=== PATIENT | male | born 1935 | race Caucasian/White ===

== ENCOUNTER 2016-09-13 15:17 | Emergency (ER) | payer MEDICARE, MEDICAID ==
[2016-02-06 09:34] VITALS: Ht 172.7 cm; Wt 81.6 kg
[~2016-09-13] VITALS: Ht 172.7 cm; Wt 81.6 kg
[2016-09-13 15:17] VITALS: BP 107/65; PULSE 77; RESP 18; TEMP 97.2; O2SAT 100
[~2016-09-13 15:17] MED LIST: AMIKACIN IV; ASA81 GT; ASCO500T20 GT; CALC-827 GT; CEFE1FRO IV; CHLO473M5 MM; CLOP75TA2 GT; COLL100 GT; DULR10 RC; FAMO20TA8 GT; FER300L GT; INSU100V11 SQ; INSU100V9 SUBCUT; IPRA3AMP9 INH; LACTIN GT; MAGN400O4 GT; MULT240L PO; NA P118E RC; POTA20TA83 GT; RIVA10TA PO; SEN30 GT; TAMS0.4C96 GT; TRAM50TA92 GT; TYLL650 GT; VITD2000 PO
[2016-09-13 15:30] VITALS: BP 105/65; PULSE 80; RESP 18; TEMP 97.4; O2SAT 100
[2016-09-13] MEDS ORDERED: GASTROGRAFIN 120 ML ONE (15:30)
== END 2016-09-13 15:30 | disposition home or self-care (01) ==
LOC: SED 15:17
DX: Z46.59 Encounter for fitting and adjustment of other gastrointestinal appliance and device (principal); K21.9 Gastro-esophageal reflux disease without esophagitis; I10 Essential (primary) hypertension; E03.9 Hypothyroidism, unspecified; Z86.73 Personal history of transient ischemic attack (TIA), and cerebral infarction without residual deficits
CPT/HCPCS: 43760; 74240; 99284; Q9963

== ENCOUNTER 2018-04-18 15:58 | Inpatient (IN) | payer MEDICAID, MEDICARE ==
[~2018-04-18] VITALS: Ht 177.8 cm; Wt 84.1 kg
[~2018-04-18 15:58] MED LIST changes: -AMIKACIN IV; +APIX2.5T GT; -CEFE1FRO IV; -CLOP75TA2 GT; -COLL100 GT; +DIPH-934 GT; -INSU100V9 SUBCUT; -MAGN400O4 GT; +MOM GT; -RIVA10TA PO; -VITD2000 PO
[2018-04-18 16:00] VITALS: BP_SYST 121
[2018-04-18] MEDS ORDERED: NACL 0.9% 1,000 ML IV ONE (17:00)
[2018-04-18] MEDS ORDERED: DEXTROSE 50% JECT 50 ML DISP.SYRIN IVP PRN (17:30)
[2018-04-18] MEDS ORDERED: D5LR 1,000 ML IV ONE (17:30)
[2018-04-18 17:38] LABS: BASOPHILS # (AUTO) 0.1 K/uL (0.0-0.2); BASOPHILS % (AUTO) 1.2 % (0.0-2.0); EOSINOPHILS # (AUTO) 0.1 K/uL (0.0-0.4); EOSINOPHILS % (AUTO) 0.6 % (0.0-4.0); HEMATOCRIT 36.9 % (36-54); HEMOGLOBIN 12.4 g/dL (14.0-18.0); LYMPHOCYTES # (AUTO) 1.7 K/uL (1.0-5.5); LYMPHOCYTES % (AUTO) 17.4 % (20.5-51.5); MEAN CORPUSCULAR HEMOGLOBIN 30 pg (27-31); MEAN CORPUSCULAR HGB CONC 34 % (32-36); MEAN CORPUSCULAR VOLUME 90 fL (79.0-98.0); MONOCYTES # (AUTO) 0.8 K/uL (0.0-1.0); MONOCYTES % (AUTO) 7.9 % (1.7-9.3); NEUTROPHILS # (AUTO) 6.9 K/uL (1.8-7.7); NEUTROPHILS % (AUTO) 72.9 % (40.0-70.0); PLATELET COUNT (AUTO) 164 K/uL (130-430); RED BLOOD CELL COUNT(AUTO) 4.09 MIL/uL (4.2-6.2); RED CELL DISTRIBUTION WIDTH 14.3 % (9.0-15.0); WHITE BLOOD COUNT (AUTO) 9.6 K/uL (4.8-10.8)
[2018-04-18] MEDS ORDERED: IPRATROPIUM/ALBUTEROL SULFATE 3 ML AMPUL.NEB (DUONEB) INH PRN (18:00)
[2018-04-18] MEDS ORDERED: NA PHOS,M-B/NA PHOS,DI-BA 118 ML (FLEET ENEMA) RC PRN (18:00)
[2018-04-18] MEDS ORDERED: MILK OF MAGNESIA 30 ML UDC GT PRN (18:00)
[2018-04-18] MEDS ORDERED: DIPHENHYDRAMINE HCL 12.5 MG/5 ML UDC GT PRN (18:00)
[2018-04-18] MEDS ORDERED: ACETAMINOPHEN 650 MG/20.3 ML UDC GT PRN (18:00)
[2018-04-18] MEDS ORDERED: traMADol HCL HCL 50 MG TABLET (ULTRAM) GT PRN (18:00)
[2018-04-18 18:32] LABS: ANION GAP 5 (5-15); CALCIUM 8.5 mg/dL (8.4-11.0); CHLORIDE 107 mmol/L (98-107); GLUCOSE 77 mg/dL (70-99); POTASSIUM 4.2 mmol/L (3.5-5.1); SODIUM SERUM 138 mmol/L (136-145); UREA NITROGEN, BLOOD 33 mg/dL (8-21)
[2018-04-18 18:37] LABS: ALANINE AMINOTRANSFERASE 33 U/L (12-78); ALBUMIN 2.7 g/dL (3.4-4.8); ASPARTATE AMINOTRANSFERASE 24 U/L (10-37); LIPASE 160 U/L (73-393); TOTAL BILIRUBIN 0.5 mg/dL (0.0-1.0)
[2018-04-18 18:39] LABS: INR 1.2 (0.80-1.20); PROTHROMBIN TIME 11.8 SECS (9.5-12.5)
[2018-04-18 18:49] VITALS: BP_SYST 103
[2018-04-18 19:25] VITALS: BP_SYST 118
[2018-04-18] MEDS: CHLORHEXIDINE GLUCONATE 15 ML/DOSE, 480 ML MM SCH (21:00)
[2018-04-18] MEDS: CINACALCET HCL 30 MG TABLET GT SCH (21:00)
[2018-04-18] MEDS: TAMSULOSIN HCL 0.4 MG CAP GT SCH (21:00)
[2018-04-18] MEDS ORDERED: LACT1TAB15 GT (21:25)
[2018-04-18] MEDS ORDERED: ATRMDI INH ×2 (21:25)
[2018-04-18] MEDS ORDERED: LOVI40 SQ (21:26)
[2018-04-18] MEDS ORDERED: PRO40 GT (21:26)
[2018-04-18] MEDS ORDERED: SENN8.6T19 PO (21:26)
[2018-04-18] MEDS ORDERED: ASCO500T20 GT (21:26)
[2018-04-18] MEDS ORDERED: DILT30TA36 GT (21:26)
[2018-04-18] MEDS: INSULIN REGULAR, HUMAN 100 UNITS/ML, 10 ML VIAL (novoLIN R) SUBCUT PRN (21:49)
[2018-04-19 00:20] VITALS: BP_SYST 100
[2018-04-19] MEDS: INSULIN REGULAR, HUMAN 100 UNITS/ML, 10 ML VIAL (novoLIN R) SUBCUT PRN (06:01)
[2018-04-19] MEDS: MIDAZOLAM HCL 5 MG/5 ML VIAL ONE ×2 (06:23→09:21)
[2018-04-19 07:13] LABS: BASOPHILS % (AUTO) 0.6 % (0.0-2.0); EOSINOPHILS # (AUTO) 0.1 K/uL (0.0-0.4); EOSINOPHILS % (AUTO) 1.8 % (0.0-4.0); HEMATOCRIT 34.7 % (36-54); HEMOGLOBIN 11.5 g/dL (14.0-18.0); LYMPHOCYTES # (AUTO) 1.2 K/uL (1.0-5.5); LYMPHOCYTES % (AUTO) 17.5 % (20.5-51.5); MEAN CORPUSCULAR HEMOGLOBIN 30 pg (27-31); MEAN CORPUSCULAR HGB CONC 33 % (32-36); MEAN CORPUSCULAR VOLUME 90 fL (79.0-98.0); MONOCYTES # (AUTO) 0.7 K/uL (0.0-1.0); MONOCYTES % (AUTO) 10.7 % (1.7-9.3); NEUTROPHILS # (AUTO) 4.8 K/uL (1.8-7.7); NEUTROPHILS % (AUTO) 69.4 % (40.0-70.0); PLATELET COUNT (AUTO) 164 K/uL (130-430); RED BLOOD CELL COUNT(AUTO) 3.84 MIL/uL (4.2-6.2); RED CELL DISTRIBUTION WIDTH 14.5 % (9.0-15.0); WHITE BLOOD COUNT (AUTO) 6.8 K/uL (4.8-10.8)
[2018-04-19 07:16] LABS: INR 1.1 (0.80-1.20); PROTHROMBIN TIME 11.5 SECS (9.5-12.5)
[2018-04-19 07:26] LABS: ANION GAP 6 (5-15); CALCIUM 8.7 mg/dL (8.4-11.0); CHLORIDE 107 mmol/L (98-107); CREATININE 0.94 mg/dL (0.55-1.30); GLUCOSE 95 mg/dL (70-99); POTASSIUM 3.8 mmol/L (3.5-5.1); SODIUM SERUM 138 mmol/L (136-145); UREA NITROGEN, BLOOD 27 mg/dL (8-21)
[2018-04-19] MEDS ORDERED: CEFAZOLIN 1 GM IVPB PREMIX 50 ML IV ONE (07:30)
[2018-04-19] MEDS: CINACALCET HCL 30 MG TABLET GT SCH (07:42)
[2018-04-19] MEDS: TAMSULOSIN HCL 0.4 MG CAP GT SCH (07:42)
[2018-04-19] MEDS: CHLORHEXIDINE GLUCONATE 15 ML/DOSE, 480 ML MM SCH (08:37)
[2018-04-19 08:44] VITALS: BP_SYST 133
[2018-04-19] MEDS ORDERED: FAMOTIDINE 20 MG TABLET GT SCH (09:00)
[2018-04-19] MEDS ORDERED: FERROUS SULFATE 300 MG/5 ML UDC GT SCH (09:00)
[2018-04-19] MEDS ORDERED: MULTIVITAMINS TAB 1 TABLET PO SCH (09:00)
[2018-04-19] MEDS ORDERED: ENOXAPARIN SODIUM 40 MG/0.4 ML SYRINGE SUBCUT SCH (09:00)
[2018-04-19] MEDS: MEPERIDINE HCL/PF 100 MG/ML AMP ONE ×2 (09:21→09:23)
[2018-04-19 09:30] VITALS: BP_SYST 131
[2018-04-19] MEDS ORDERED: GASTROGRAFIN 120 ML ONE (14:03)
[2018-04-19 15:45] VITALS: BP_SYST 132
[2018-04-19] MEDS ORDERED: D5LR 1,000 ML IV SCH (15:45)
[2018-04-19 17:44] VITALS: BP_SYST 132
== END 2018-04-19 18:50 | DRG 252 ==
LOC: SED 15:58 → STU 17:19
PROVIDERS: ADMIT Internal Medicine; ATTEND Internal Medicine
PROC: 5A1945Z Respiratory Ventilation, 24-96 Consecutive Hours (ICD-10-PCS; 2018-04-18)
PROC: 0D20XUZ Change Feeding Device in Upper Intestinal Tract, External Approach (ICD-10-PCS; principal; 2018-04-19 09:00)
DX: K94.29 Other complications of gastrostomy (principal); K31.6 Fistula of stomach and duodenum; Z99.11 Dependence on respirator [ventilator] status; J96.10 Chronic respiratory failure, unspecified whether with hypoxia or hypercapnia; Z93.0 Tracheostomy status; Y83.3 Surgical operation with formation of external stoma as the cause of abnormal reaction of the patient, or of later complication, without mention of misadventure at the time of the procedure; R13.10 Dysphagia, unspecified; D68.59 Other primary thrombophilia; N40.0 Benign prostatic hyperplasia without lower urinary tract symptoms; E21.3 Hyperparathyroidism, unspecified; E11.9 Type 2 diabetes mellitus without complications; I48.0 Paroxysmal atrial fibrillation; E78.5 Hyperlipidemia, unspecified; F03.90 Unspecified dementia, unspecified severity, without behavioral disturbance, psychotic disturbance, mood disturbance, and anxiety; Z79.4 Long term (current) use of insulin; I69.351 Hemiplegia and hemiparesis following cerebral infarction affecting right dominant side
CPT/HCPCS: 36415; 43246; 71045; 74018; 74240-TC; 80048; 80053; 82962; 83690-TC; 85025; 85610-TC; 85730-TC; 87070-TC; 87081; 87186-TC; 87205-TC; 93005; 94002; 94003; 94640; 94760; 96360; 99285; J0690; J1650; J1815; J2175; J2250; J7120; Q9963

== ENCOUNTER 2020-02-19 11:40 | Emergency (ER) | payer MEDICARE, MEDICAID ==
[~2020-02-19] VITALS: Ht 165.1 cm; Wt 64.0 kg
[~2020-02-19 11:40] MED LIST changes: +ATRMDI INH; +DILT30TA36 GT; +LACT1TAB15 GT; +LOVI40 SQ; +PRO40 GT; +SENN8.6T19 PO
[2020-02-19 11:53] VITALS: BP_SYST 116
--- NOTE | 2020-02-19 11:53 | NUR ---
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 To gown for exam. Side rails up. Report given to NBA Barone.
--- NOTE | 2020-02-19 11:55 | NUR ---
Pt brought by ambulance, A&Ox1, pt presents to Er with abdominal distention, pt afebrile , skin pink and warm , cap refill <3, VSS, respirations even and unlabored, will cont to monitor.
--- NOTE | 2020-02-19 12:00 | NUR ---
Darinel Valladares at bedside examining patient
[2020-02-19 12:09] LABS: BASOPHILS # (AUTO) 0.1 K/uL (0.0-0.2); BASOPHILS % (AUTO) 1.2 % (0.0-2.0); EOSINOPHILS # (AUTO) 0.2 K/uL (0.0-0.4); EOSINOPHILS % (AUTO) 2.7 % (0.0-4.0); HEMATOCRIT 31.2 % (36-54); HEMOGLOBIN 9.9 g/dL (14.0-18.0); LYMPHOCYTES # (AUTO) 0.9 K/uL (1.0-5.5); LYMPHOCYTES % (AUTO) 13.6 % (20.5-51.5); MEAN CORPUSCULAR HEMOGLOBIN 26 pg (27-31); MEAN CORPUSCULAR HGB CONC 32 % (32-36); MEAN CORPUSCULAR VOLUME 83 fL (79.0-98.0); MONOCYTES # (AUTO) 0.7 K/uL (0.0-1.0); MONOCYTES % (AUTO) 11.3 % (1.7-9.3); NEUTROPHILS # (AUTO) 4.7 K/uL (1.8-7.7); NEUTROPHILS % (AUTO) 71.2 % (40.0-70.0); PLATELET COUNT (AUTO) 190 K/uL (130-430); RED BLOOD CELL COUNT(AUTO) 3.77 MIL/uL (4.2-6.2); RED CELL DISTRIBUTION WIDTH 16.3 % (9.0-15.0); WHITE BLOOD COUNT (AUTO) 6.6 K/uL (4.8-10.8)
--- NOTE | 2020-02-19 12:10 | NUR ---
Pt attempting to pulled Endotracheal tube out , soft restrains placed on patient.
[2020-02-19 12:18] LABS: ANION GAP 3 (5-15); CALCIUM 7.4 mg/dL (8.4-11.0); CHLORIDE 102 mmol/L (98-107); CREATININE 1.44 mg/dL (0.55-1.30); GLUCOSE 84 mg/dL (70-99); POTASSIUM 4.3 mmol/L (3.5-5.1); SODIUM SERUM 136 mmol/L (136-145); UREA NITROGEN, BLOOD 32 mg/dL (8-21)
[2020-02-19 12:24] LABS: ALANINE AMINOTRANSFERASE 20 U/L (12-78); ALBUMIN 2.3 g/dL (3.4-4.8); ASPARTATE AMINOTRANSFERASE 26 U/L (10-37); LIPASE 287 U/L (73-393); TOTAL BILIRUBIN 0.4 mg/dL (0.0-1.0)
[2020-02-19] MEDS ORDERED: SIMETHICONE 80 MG TAB.CHEW GT ONE (13:15)
[2020-02-19] MEDS ORDERED: LACTULOSE 20 GM/30 ML UDC PO ONE (13:15)
--- NOTE | 2020-02-19 13:15 | NUR ---
Attempted to insert urinary catheter but resistance during insertion, notified, Dr Hunter notified, will cont to monitor.
--- NOTE | 2020-02-19 14:13 | NUR ---
Called Jacinto skinner to notify patient is returning to facility, pt on stable condition, pt afebrile, will cont to monitor.
--- NOTE | 2020-02-19 14:15 | NUR ---
Restrains well tolerated, cap refill <3, radial pulses strong.
[2020-02-19 15:29] VITALS: BP_SYST 135
--- NOTE | 2020-02-19 15:31 | NUR ---
Patient and EMS given written and verbal discharge instructions and verbalizes understanding. ER MD discussed with patient the results and treatment provided. Patient in stable condition. ID arm band removed. Rx of Lactulose given. Patient and EMS educated on pain management and to follow up with PMD. Pain Scale 0/10. Opportunity for questions provided and answered. Medication side effect fact sheet provided.
== END 2020-02-19 15:29 | disposition home or self-care (01) ==
LOC: SED 11:40
DX: K59.00 Constipation, unspecified (principal); R14.0 Abdominal distension (gaseous); I10 Essential (primary) hypertension; E11.9 Type 2 diabetes mellitus without complications; K21.9 Gastro-esophageal reflux disease without esophagitis; J44.9 Chronic obstructive pulmonary disease, unspecified; I48.91 Unspecified atrial fibrillation; Z79.899 Other long term (current) drug therapy
CPT/HCPCS: 36415; 71045; 80053; 83605; 83690-TC; 85025; 87040-TC; 99285

== ENCOUNTER 2020-10-01 22:31 | Inpatient (IN) | payer MEDICAID, MEDICARE, SELFPAY ==
[~2020-10-01] VITALS: Ht 162.6 cm; Wt 90.3 kg
[2020-10-01 22:33] VITALS: BP_SYST 96
[2020-10-01] MEDS ORDERED: cefTRIAXone 1 GM IVPB PREMIX 50 ML IV ONE (22:45)
[2020-10-01] MEDS ORDERED: NACL 0.9% 1,000 ML IV ONE (23:00)
[2020-10-01 23:32] LABS: HEMATOCRIT 24.7 % (36-54); MEAN CORPUSCULAR HEMOGLOBIN 26 pg (27-31); MEAN CORPUSCULAR HGB CONC 32 % (32-36); MEAN CORPUSCULAR VOLUME 80 fL (79.0-98.0); PLATELET COUNT (AUTO) 237 K/uL (130-430); RED BLOOD CELL COUNT(AUTO) 3.09 MIL/uL (4.2-6.2); RED CELL DISTRIBUTION WIDTH 17.2 % (9.0-15.0)
[2020-10-01 23:37] LABS: WHITE BLOOD COUNT (AUTO) 35.2 K/uL (4.8-10.8)
[2020-10-01 23:41] LABS: ANION GAP 8 (5-15); CALCIUM 8.9 mg/dL (8.4-11.0); CHLORIDE 95 mmol/L (98-107); CREATININE 1.45 mg/dL (0.55-1.30); GLUCOSE 108 mg/dL (70-99); POTASSIUM 3.9 mmol/L (3.5-5.1); SODIUM SERUM 127 mmol/L (136-145); UREA NITROGEN, BLOOD 39 mg/dL (8-21)
[2020-10-01 23:43] LABS: ATYPICAL LYMPHOCYTES % 0 % (0-0); BAND % (MANUAL) 1 % (0-6); EOSINOPHILS % (MANUAL) 0 % (0-7); LYMPHOCYTES % (MANUAL) 7 % (20-46); MONOCYTES % (MANUAL) 5 % (0-11)
[2020-10-01 23:44] LABS: BASOPHILS % (MANUAL) 0 % (0-2)
[2020-10-01 23:56] LABS: ALANINE AMINOTRANSFERASE 20 U/L (12-78); ALBUMIN 1.5 g/dL (3.4-4.8); ASPARTATE AMINOTRANSFERASE 24 U/L (10-37); TOTAL BILIRUBIN 0.9 mg/dL (0.0-1.0)
[2020-10-02] VITALS (10 sets, daily range): BP systolic 84–145
[2020-10-02] MEDS ORDERED: VANCOMYCIN HCL 1,000 MG in NS 250 ML IV ONE (00:30)
[2020-10-02] MEDS ORDERED: VANCOMYCIN HCL 1000 MG/VIAL IV ONE (00:38)
[2020-10-02] MEDS ORDERED: LEVOFLOXACIN 500 MG/D5W 100 ML IV SCH (00:45)
[2020-10-02] MEDS ORDERED: INSULIN REGULAR, HUMAN 100 UNITS/ML, 10 ML VIAL (humuLIN R) SUBCUT PRN (00:45)
[2020-10-02] MEDS ORDERED: DOCU-144 GT (00:50)
[2020-10-02] MEDS ORDERED: DIF100 GT (00:50)
[2020-10-02] MEDS ORDERED: FURO40TA5 GT (00:51)
[2020-10-02] MEDS ORDERED: BISA10SU61 RC (00:51)
[2020-10-02] MEDS ORDERED: OMEP20CA15 GT (00:51)
[2020-10-02] MEDS ORDERED: LEVOFLOXACIN 500 MG/D5W 100 ML IV ONE (03:23)
[2020-10-02] MEDS ORDERED: PIPERACILLIN/TAZO 3.375/DEX-IS 50 ML IV SCH (09:30)
[2020-10-02] MEDS ORDERED: traMADol HCL HCL 50 MG TABLET (ULTRAM) GT PRN (10:00)
[2020-10-02] MEDS ORDERED: DIPHENHYDRAMINE HCL 12.5 MG/5 ML UDC GT PRN (10:00)
[2020-10-02] MEDS ORDERED: DILTIAZEM HCL 30 MG TABLET GT ONE (10:00)
[2020-10-02] MEDS ORDERED: BISACODYL 10 MG/SUPPOSITORY RC PRN (10:00)
[2020-10-02] MEDS ORDERED: IPRATROPIUM/ALBUTEROL SULFATE 3 ML AMPUL.NEB (DUONEB) INH PRN (10:00)
[2020-10-02] MEDS ORDERED: FAMOTIDINE 20 MG TABLET GT SCH (10:00)
[2020-10-02] MEDS ORDERED: BISACODYL 10 MG/SUPPOSITORY RC SCH (10:00)
[2020-10-02] MEDS ORDERED: TAMSULOSIN HCL 0.4 MG CAP GT ONE (10:00)
[2020-10-02] MEDS ORDERED: FLUCONAZOLE 100 MG TABLET (DIFLUCAN) GT ONE (10:00)
[2020-10-02] MEDS ORDERED: ASPIRIN 81 MG TAB.CHEW GT ONE (10:00)
[2020-10-02] MEDS ORDERED: FUROSEMIDE 40 MG TABLET GT ONE (10:00)
[2020-10-02] MEDS ORDERED: DEXTROSE 50% JECT 50 ML DISP.SYRIN IVP PRN (10:15)
[2020-10-02 11:02] LABS: BASOPHILS % (AUTO) 0.1 % (0.0-2.0); EOSINOPHILS % (AUTO) 0.1 % (0.0-4.0); HEMATOCRIT 25.4 % (36-54); HEMOGLOBIN 8.2 g/dL (14.0-18.0); LYMPHOCYTES # (AUTO) 1.1 K/uL (1.0-5.5); LYMPHOCYTES % (AUTO) 4.5 % (20.5-51.5); MEAN CORPUSCULAR HEMOGLOBIN 26 pg (27-31); MEAN CORPUSCULAR HGB CONC 32 % (32-36); MEAN CORPUSCULAR VOLUME 80 fL (79.0-98.0); MONOCYTES # (AUTO) 1.8 K/uL (0.0-1.0); MONOCYTES % (AUTO) 6.9 % (1.7-9.3); NEUTROPHILS # (AUTO) 22.7 K/uL (1.8-7.7); NEUTROPHILS % (AUTO) 88.4 % (40.0-70.0); PLATELET COUNT (AUTO) 230 K/uL (130-430); RED BLOOD CELL COUNT(AUTO) 3.19 MIL/uL (4.2-6.2); RED CELL DISTRIBUTION WIDTH 17.3 % (9.0-15.0); WHITE BLOOD COUNT (AUTO) 25.6 K/uL (4.8-10.8)
[2020-10-02 11:03] LABS: ANION GAP 6 (5-15); CALCIUM 8.6 mg/dL (8.4-11.0); CHLORIDE 98 mmol/L (98-107); CREATININE 1.34 mg/dL (0.55-1.30); GLUCOSE 66 mg/dL (70-99); POTASSIUM 4.1 mmol/L (3.5-5.1); SODIUM SERUM 131 mmol/L (136-145); UREA NITROGEN, BLOOD 38 mg/dL (8-21)
[2020-10-02] MEDS ORDERED: PANTOPRAZOLE SODIUM 40 MG/VIAL (PROTONIX) IVP ONE (11:15)
[2020-10-02] MEDS: LEVOFLOXACIN 250 MG/D5W 50 ML IV SCH (12:33)
[2020-10-02] MEDS: NACL 0.9% 1,000 ML IV SCH (12:36)
[2020-10-02] MEDS ORDERED: ENOXAPARIN SODIUM 40 MG/0.4 ML SYRINGE SUBCUT ONE (13:45)
[2020-10-02] MEDS ORDERED: ASPIRIN 81 MG TABLET(ECOTRIN) PO ONE (13:45)
[2020-10-02] MEDS: PIPERACILLIN/TAZO 2.25G/DEX-IS 50 ML IV SCH ×2 (14:27→17:39)
[2020-10-02] MEDS: DILTIAZEM HCL 30 MG TABLET GT SCH ×2 (15:00→21:46)
[2020-10-02] MEDS ORDERED: ASCORBIC ACID 500 MG TABLET GT SCH (21:00)
[2020-10-02] MEDS: PANTOPRAZOLE SODIUM 40 MG/VIAL (PROTONIX) IVP SCH (21:43)
[2020-10-02] MEDS: TAMSULOSIN HCL 0.4 MG CAP GT SCH (21:46)
[2020-10-02] MEDS: ACETAMINOPHEN 650 MG/20.3 ML UDC GT PRN (21:47)
[2020-10-02] MEDS: VANCOMYCIN HCL 1.25 GM/NS 250 ML IV SCH (22:03)
[2020-10-02] MEDS: CHLORHEXIDINE GLUCONATE 15 ML/DOSE, 480 ML MM SCH (22:04)
[2020-10-03] MEDS: PIPERACILLIN/TAZO 2.25G/DEX-IS 50 ML IV SCH ×4 (00:14→17:52)
[2020-10-03 01:28] VITALS: BP_SYST 123
[2020-10-03] MEDS: NACL 0.9% 1,000 ML IV SCH ×2 (02:55→20:13)
[2020-10-03 06:54] LABS: BASOPHILS # (AUTO) 0.1 K/uL (0.0-0.2); BASOPHILS % (AUTO) 0.4 % (0.0-2.0); EOSINOPHILS % (AUTO) 0.3 % (0.0-4.0); HEMATOCRIT 24.2 % (36-54); HEMOGLOBIN 7.9 g/dL (14.0-18.0); LYMPHOCYTES % (AUTO) 6.3 % (20.5-51.5); MEAN CORPUSCULAR HEMOGLOBIN 26 pg (27-31); MEAN CORPUSCULAR HGB CONC 32 % (32-36); MEAN CORPUSCULAR VOLUME 80 fL (79.0-98.0); MONOCYTES # (AUTO) 1.3 K/uL (0.0-1.0); MONOCYTES % (AUTO) 8.3 % (1.7-9.3); NEUTROPHILS % (AUTO) 84.7 % (40.0-70.0); PLATELET COUNT (AUTO) 223 K/uL (130-430); RED BLOOD CELL COUNT(AUTO) 3.02 MIL/uL (4.2-6.2); RED CELL DISTRIBUTION WIDTH 17.1 % (9.0-15.0); WHITE BLOOD COUNT (AUTO) 15.3 K/uL (4.8-10.8)
[2020-10-03 07:06] LABS: ALANINE AMINOTRANSFERASE 24 U/L (12-78); ALBUMIN 1.4 g/dL (3.4-4.8); ANION GAP 8 (5-15); ASPARTATE AMINOTRANSFERASE 31 U/L (10-37); CALCIUM 9.1 mg/dL (8.4-11.0); CHLORIDE 101 mmol/L (98-107); CREATININE 1.43 mg/dL (0.55-1.30); GLUCOSE 107 mg/dL (70-99); POTASSIUM 3.8 mmol/L (3.5-5.1); SODIUM SERUM 133 mmol/L (136-145); TOTAL BILIRUBIN 0.7 mg/dL (0.0-1.0); UREA NITROGEN, BLOOD 42 mg/dL (8-21)
[2020-10-03] MEDS: IPRATROPIUM/ALBUTEROL SULFATE 3 ML AMPUL.NEB (DUONEB) INH SCH ×3 (07:30→19:20)
[2020-10-03 07:43] LABS: TOTAL IRON BIND. CAPACITY 158 ug/dL (250-450)
[2020-10-03 08:00] VITALS: BP_SYST 115
[2020-10-03] MEDS ORDERED: ASPIRIN 81 MG TAB.CHEW GT SCH (09:00)
[2020-10-03] MEDS ORDERED: FLUCONAZOLE 100 MG TABLET (DIFLUCAN) GT SCH (09:00)
[2020-10-03] MEDS ORDERED: ASPIRIN 81 MG TABLET(ECOTRIN) PO SCH (09:00)
[2020-10-03] MEDS ORDERED: ASCORBIC ACID 500 MG TABLET GT SCH (09:00)
[2020-10-03] MEDS ORDERED: ENOXAPARIN SODIUM 40 MG/0.4 ML SYRINGE SUBCUT SCH (09:00)
[2020-10-03] MEDS ORDERED: ENOXAPARIN SODIUM 40 MG/0.4 ML SYRINGE SQ SCH (09:00)
[2020-10-03] MEDS: PANTOPRAZOLE SODIUM 40 MG/VIAL (PROTONIX) IVP SCH ×2 (09:51→21:00)
[2020-10-03] MEDS: DILTIAZEM HCL 30 MG TABLET GT SCH ×3 (09:52→21:00)
[2020-10-03] MEDS: FERROUS SULFATE 300 MG/5 ML UDC GT SCH (09:52)
[2020-10-03] MEDS: FUROSEMIDE 40 MG TABLET GT SCH (09:53)
[2020-10-03] MEDS: TAMSULOSIN HCL 0.4 MG CAP GT SCH ×2 (09:53→21:00)
[2020-10-03] MEDS: LACTOBACILLUS RHAMNOSUS GG 1 CAP CAPSULE PO SCH (09:53)
[2020-10-03] MEDS: FAMOTIDINE 20 MG TABLET GT SCH (09:53)
[2020-10-03] MEDS: CHLORHEXIDINE GLUCONATE 15 ML/DOSE, 480 ML MM SCH ×2 (09:54→21:00)
[2020-10-03] MEDS ORDERED: ASPIRIN 81 MG TABLET(ECOTRIN) PO ONE (10:30)
[2020-10-03] MEDS: LEVOFLOXACIN 250 MG/D5W 50 ML IV SCH (13:18)
[2020-10-03] MEDS: EPOETIN ALFA 4,000 UNITS/ML VIAL SUBCUT SCH (15:09)
[2020-10-03] MEDS: SOD FERRIC GLUC COMPLEX/SUC 125 MG in NS 100 ML IV SCH (15:13)
[2020-10-03 16:00] VITALS: BP_SYST 113
[2020-10-03 20:00] VITALS: BP_SYST 130
[2020-10-03] MEDS: ASCORBIC ACID 500 MG TABLET GT SCH (21:00)
[2020-10-03] MEDS: MULTIVITAMINS TAB 1 TABLET GT SCH (21:00)
[2020-10-03] MEDS: VANCOMYCIN HCL 1.25 GM/NS 250 ML IV SCH (21:00)
[2020-10-03] MEDS: APIXABAN 2.5 MG TABLET PO SCH (21:00)
[2020-10-04] VITALS: BP_SYST 99
[2020-10-04] MEDS: PIPERACILLIN/TAZO 2.25G/DEX-IS 50 ML IV SCH ×4 (05:41→17:33)
[2020-10-04] MEDS: IPRATROPIUM/ALBUTEROL SULFATE 3 ML AMPUL.NEB (DUONEB) INH SCH ×3 (06:54→19:35)
[2020-10-04 07:37] LABS: BASOPHILS % (AUTO) 0.4 % (0.0-2.0); EOSINOPHILS # (AUTO) 0.1 K/uL (0.0-0.4); EOSINOPHILS % (AUTO) 0.7 % (0.0-4.0); HEMATOCRIT 24.7 % (36-54); LYMPHOCYTES # (AUTO) 1.2 K/uL (1.0-5.5); LYMPHOCYTES % (AUTO) 10.7 % (20.5-51.5); MEAN CORPUSCULAR HEMOGLOBIN 26 pg (27-31); MEAN CORPUSCULAR HGB CONC 33 % (32-36); MEAN CORPUSCULAR VOLUME 81 fL (79.0-98.0); MONOCYTES # (AUTO) 1.3 K/uL (0.0-1.0); MONOCYTES % (AUTO) 11.9 % (1.7-9.3); NEUTROPHILS # (AUTO) 8.4 K/uL (1.8-7.7); NEUTROPHILS % (AUTO) 76.3 % (40.0-70.0); PLATELET COUNT (AUTO) 241 K/uL (130-430); RED BLOOD CELL COUNT(AUTO) 3.04 MIL/uL (4.2-6.2); RED CELL DISTRIBUTION WIDTH 17.4 % (9.0-15.0)
[2020-10-04 08:00] VITALS: BP_SYST 116
[2020-10-04 08:09] LABS: ANION GAP 9 (5-15); CALCIUM 9.4 mg/dL (8.4-11.0); CHLORIDE 104 mmol/L (98-107); CREATININE 1.42 mg/dL (0.55-1.30); GLUCOSE 115 mg/dL (70-99); POTASSIUM 4.2 mmol/L (3.5-5.1); SODIUM SERUM 138 mmol/L (136-145); UREA NITROGEN, BLOOD 50 mg/dL (8-21)
[2020-10-04] MEDS ORDERED: ASPIRIN 81 MG TABLET(ECOTRIN) PO SCH (09:00)
[2020-10-04] MEDS: MULTIVITAMINS TAB 1 TABLET GT SCH ×2 (09:21→21:27)
[2020-10-04] MEDS: TAMSULOSIN HCL 0.4 MG CAP GT SCH ×2 (09:22→21:00)
[2020-10-04] MEDS: FUROSEMIDE 40 MG TABLET GT SCH (09:22)
[2020-10-04] MEDS: LACTOBACILLUS RHAMNOSUS GG 1 CAP CAPSULE PO SCH (09:22)
[2020-10-04] MEDS: ASCORBIC ACID 500 MG TABLET GT SCH ×2 (09:22→21:27)
[2020-10-04] MEDS: FAMOTIDINE 20 MG TABLET GT SCH (09:23)
[2020-10-04] MEDS: CHLORHEXIDINE GLUCONATE 15 ML/DOSE, 480 ML MM SCH ×2 (09:23→21:00)
[2020-10-04] MEDS: FERROUS SULFATE 300 MG/5 ML UDC GT SCH (09:23)
[2020-10-04] MEDS: DILTIAZEM HCL 30 MG TABLET GT SCH ×3 (09:23→21:00)
[2020-10-04] MEDS: PANTOPRAZOLE SODIUM 40 MG/VIAL (PROTONIX) IVP SCH ×2 (09:24→21:27)
[2020-10-04] MEDS: APIXABAN 2.5 MG TABLET PO SCH ×2 (09:36→21:00)
[2020-10-04] MEDS: NACL 0.9% 1,000 ML IV SCH (11:47)
[2020-10-04 12:00] VITALS: BP_SYST 100
[2020-10-04] MEDS: SOD FERRIC GLUC COMPLEX/SUC 125 MG in NS 100 ML IV SCH (15:55)
[2020-10-04 16:00] VITALS: BP_SYST 95
[2020-10-04 19:00] VITALS: BP_SYST 100
[2020-10-04] MEDS: VANCOMYCIN HCL 1.25 GM/NS 250 ML IV SCH (21:27)
[2020-10-04] MEDS: ACETAMINOPHEN 650 MG/20.3 ML UDC GT PRN (21:27)
[2020-10-05] VITALS: BP_SYST 94
[2020-10-05] MEDS: IPRATROPIUM/ALBUTEROL SULFATE 3 ML AMPUL.NEB (DUONEB) INH SCH ×4 (03:30→19:30)
[2020-10-05] MEDS: PIPERACILLIN/TAZO 2.25G/DEX-IS 50 ML IV SCH ×5 (06:04→23:59)
[2020-10-05] MEDS: NACL 0.9% 1,000 ML IV SCH ×2 (06:05→17:00)
[2020-10-05 07:46] LABS: HEMATOCRIT 25.1 % (36-54); HEMOGLOBIN 8.2 g/dL (14.0-18.0); MEAN CORPUSCULAR HEMOGLOBIN 27 pg (27-31); MEAN CORPUSCULAR HGB CONC 33 % (32-36); MEAN CORPUSCULAR VOLUME 80 fL (79.0-98.0); PLATELET COUNT (AUTO) 270 K/uL (130-430); RED BLOOD CELL COUNT(AUTO) 3.11 MIL/uL (4.2-6.2); RED CELL DISTRIBUTION WIDTH 17.6 % (9.0-15.0)
[2020-10-05 08:12] VITALS: BP_SYST 120
[2020-10-05 08:19] LABS: ANION GAP 9 (5-15); CALCIUM 8.6 mg/dL (8.4-11.0); CHLORIDE 106 mmol/L (98-107); CREATININE 1.43 mg/dL (0.55-1.30); GLUCOSE 98 mg/dL (70-99); POTASSIUM 3.9 mmol/L (3.5-5.1); SODIUM SERUM 140 mmol/L (136-145); UREA NITROGEN, BLOOD 49 mg/dL (8-21)
[2020-10-05] MEDS: FUROSEMIDE 40 MG TABLET GT SCH (09:29)
[2020-10-05] MEDS: TAMSULOSIN HCL 0.4 MG CAP GT SCH ×2 (09:29→21:32)
[2020-10-05] MEDS: LACTOBACILLUS RHAMNOSUS GG 1 CAP CAPSULE PO SCH (09:29)
[2020-10-05] MEDS: DILTIAZEM HCL 30 MG TABLET GT SCH ×3 (09:29→21:49)
[2020-10-05] MEDS: FAMOTIDINE 20 MG TABLET GT SCH (09:30)
[2020-10-05] MEDS: ASCORBIC ACID 500 MG TABLET GT SCH ×2 (09:30→21:31)
[2020-10-05] MEDS: PANTOPRAZOLE SODIUM 40 MG/VIAL (PROTONIX) IVP SCH ×2 (09:30→21:09)
[2020-10-05] MEDS: FERROUS SULFATE 300 MG/5 ML UDC GT SCH (09:31)
[2020-10-05] MEDS: MULTIVITAMINS TAB 1 TABLET GT SCH ×2 (09:31→21:32)
[2020-10-05] MEDS: CHLORHEXIDINE GLUCONATE 15 ML/DOSE, 480 ML MM SCH ×2 (09:33→21:10)
[2020-10-05 10:35] VITALS: BP_SYST 120
[2020-10-05 11:32] VITALS: BP_SYST 121
[2020-10-05] MEDS: APIXABAN 2.5 MG TABLET PO SCH (12:48)
[2020-10-05 14:49] LABS: BAND % (MANUAL) 4 % (0-6); BASOPHILS % (MANUAL) 0 % (0-2); EOSINOPHILS % (MANUAL) 0 % (0-7); LYMPHOCYTES % (MANUAL) 11 % (20-46); METAMYELOCYTES % 5 % (0-0); MONOCYTES % (MANUAL) 12 % (0-11); WBC MORPHOLOGY TOXIC GRANULATION
[2020-10-05] MEDS: SOD FERRIC GLUC COMPLEX/SUC 125 MG in NS 100 ML IV SCH (15:00)
[2020-10-05 15:28] VITALS: BP_SYST 111
[2020-10-05] MEDS: EPOETIN ALFA 4,000 UNITS/ML VIAL SUBCUT SCH (16:58)
[2020-10-05 20:04] VITALS: BP_SYST 97
[2020-10-05 20:06] LABS: BASOPHILS # (AUTO) 0.1 K/uL (0.0-0.2); BASOPHILS % (AUTO) 0.8 % (0.0-2.0); EOSINOPHILS # (AUTO) 0.1 K/uL (0.0-0.4); EOSINOPHILS % (AUTO) 0.8 % (0.0-4.0); HEMATOCRIT 26.8 % (36-54); HEMOGLOBIN 8.6 g/dL (14.0-18.0); LYMPHOCYTES # (AUTO) 1.4 K/uL (1.0-5.5); LYMPHOCYTES % (AUTO) 11.8 % (20.5-51.5); MEAN CORPUSCULAR HEMOGLOBIN 26 pg (27-31); MEAN CORPUSCULAR HGB CONC 32 % (32-36); MEAN CORPUSCULAR VOLUME 81 fL (79.0-98.0); MONOCYTES # (AUTO) 1.3 K/uL (0.0-1.0); MONOCYTES % (AUTO) 10.6 % (1.7-9.3); NEUTROPHILS # (AUTO) 9.3 K/uL (1.8-7.7); PLATELET COUNT (AUTO) 279 K/uL (130-430); RED BLOOD CELL COUNT(AUTO) 3.31 MIL/uL (4.2-6.2); RED CELL DISTRIBUTION WIDTH 17.7 % (9.0-15.0); WHITE BLOOD COUNT (AUTO) 12.2 K/uL (4.8-10.8)
[2020-10-05 20:18] LABS: ANION GAP 8 (5-15); CALCIUM 8.5 mg/dL (8.4-11.0); CHLORIDE 106 mmol/L (98-107); CREATININE 1.46 mg/dL (0.55-1.30); GLUCOSE 135 mg/dL (70-99); POTASSIUM 3.9 mmol/L (3.5-5.1); SODIUM SERUM 139 mmol/L (136-145); UREA NITROGEN, BLOOD 48 mg/dL (8-21)
[2020-10-05 20:38] LABS: VANCOMYCIN,TROUGH 22.6 ug/mL (5.0-10.0)
[2020-10-05] MEDS: VANCOMYCIN HCL 1.25 GM/NS 250 ML IV SCH (21:10)
[2020-10-05] MEDS: ACETAMINOPHEN 650 MG/20.3 ML UDC GT PRN ×2 (21:32→23:57)
[2020-10-06 01:24] VITALS: BP_SYST 94
[2020-10-06] MEDS: PIPERACILLIN/TAZO 2.25G/DEX-IS 50 ML IV SCH ×3 (06:37→17:32)
[2020-10-06] MEDS: INSULIN REGULAR, HUMAN 100 UNITS/ML, 10 ML VIAL (humuLIN R) SUBCUT PRN (07:04)
[2020-10-06] MEDS: IPRATROPIUM/ALBUTEROL SULFATE 3 ML AMPUL.NEB (DUONEB) INH SCH ×2 (07:32→19:00)
[2020-10-06 07:37] VITALS: BP_SYST 104
[2020-10-06] MEDS: TAMSULOSIN HCL 0.4 MG CAP GT SCH ×2 (08:39→20:22)
[2020-10-06] MEDS: PANTOPRAZOLE SODIUM 40 MG/VIAL (PROTONIX) IVP SCH ×2 (08:39→20:22)
[2020-10-06] MEDS: FAMOTIDINE 20 MG TABLET GT SCH (08:39)
[2020-10-06] MEDS: FERROUS SULFATE 300 MG/5 ML UDC GT SCH (08:39)
[2020-10-06] MEDS: LACTOBACILLUS RHAMNOSUS GG 1 CAP CAPSULE PO SCH (08:39)
[2020-10-06] MEDS: ASCORBIC ACID 500 MG TABLET GT SCH ×2 (08:39→20:22)
[2020-10-06] MEDS: MULTIVITAMINS TAB 1 TABLET GT SCH ×2 (08:39→20:22)
[2020-10-06] MEDS: CHLORHEXIDINE GLUCONATE 15 ML/DOSE, 480 ML MM SCH ×2 (08:40→20:22)
[2020-10-06] MEDS: FUROSEMIDE 40 MG TABLET GT SCH (09:00)
[2020-10-06] MEDS: DILTIAZEM HCL 30 MG TABLET GT SCH ×3 (09:00→21:00)
[2020-10-06 12:19] VITALS: BP_SYST 105
[2020-10-06] MEDS: NACL 0.9% 1,000 ML IV SCH (13:14)
[2020-10-06] MEDS: SOD FERRIC GLUC COMPLEX/SUC 125 MG in NS 100 ML IV SCH (17:39)
[2020-10-06 20:00] VITALS: BP_SYST 112
[2020-10-06 20:02] VITALS: BP_SYST 105
[2020-10-06] MEDS: VANCOMYCIN HCL 1 GM/NS PREMIX 250 ML IV SCH (20:22)
[2020-10-07] VITALS (8 sets, daily range): BP systolic 102–121
[2020-10-07] MEDS: PIPERACILLIN/TAZO 2.25G/DEX-IS 50 ML IV SCH ×4 (06:19→17:07)
[2020-10-07 06:38] LABS: BILIRUBIN,URINE NEGATIVE (NEGATIVE); CLARITY/URINE CLOUDY (CLEAR); COLOR,URINE YELLOW (YELLOW); GLUCOSE,URINE NEGATIVE (NEGATIVE); KETONES,URINE NEGATIVE (NEGATIVE); LEUKOCYTE ESTERASE ,URINE 2+ (NEGATIVE); NITRITE, URINE NEGATIVE (NEGATIVE); PROTEIN URINE TRACE (NEGATIVE); UROBILINOGEN,URINE 0.2 (0.2-1.0)
[2020-10-07 07:50] LABS: INR 1.1 (0.80-1.20); PROTHROMBIN TIME 11.2 SECS (9.5-12.5)
[2020-10-07] MEDS: IPRATROPIUM/ALBUTEROL SULFATE 3 ML AMPUL.NEB (DUONEB) INH SCH ×3 (08:07→19:00)
[2020-10-07] MEDS: LACTOBACILLUS RHAMNOSUS GG 1 CAP CAPSULE PO SCH (08:36)
[2020-10-07] MEDS: PANTOPRAZOLE SODIUM 40 MG/VIAL (PROTONIX) IVP SCH ×2 (08:37→21:59)
[2020-10-07] MEDS: TAMSULOSIN HCL 0.4 MG CAP GT SCH ×2 (08:37→22:00)
[2020-10-07] MEDS: ASCORBIC ACID 500 MG TABLET GT SCH ×2 (08:37→22:00)
[2020-10-07] MEDS: FAMOTIDINE 20 MG TABLET GT SCH (08:37)
[2020-10-07] MEDS: MULTIVITAMINS TAB 1 TABLET GT SCH ×2 (08:41→22:00)
[2020-10-07] MEDS: FERROUS SULFATE 300 MG/5 ML UDC GT SCH (08:41)
[2020-10-07] MEDS: CHLORHEXIDINE GLUCONATE 15 ML/DOSE, 480 ML MM SCH ×2 (08:42→22:02)
[2020-10-07] MEDS: FUROSEMIDE 40 MG TABLET GT SCH (08:44)
[2020-10-07] MEDS: DILTIAZEM HCL 30 MG TABLET GT SCH ×3 (08:44→21:00)
[2020-10-07] MEDS: NACL 0.9% 1,000 ML IV SCH (11:48)
[2020-10-07 12:09] LABS: BLOOD, URINE TRACE (NEGATIVE)
[2020-10-07 12:19] LABS: BACTERIA,URINE FEW /HPF (None Seen); MUCUS,URINE 1+ /LPF (None Seen); WBC,URINE 20-50 /HPF (0-3)
[2020-10-07] MEDS: EPOETIN ALFA 4,000 UNITS/ML VIAL SUBCUT SCH (16:33)
[2020-10-07] MEDS ORDERED: ONDANSETRON HCL 4 MG/2 ML VIAL IVP PRN (19:15)
[2020-10-07] MEDS ORDERED: fentaNYL CITRATE/PF 100 MCG/2 ML AMP IVP PRN ×2 (19:15)
[2020-10-07] MEDS: VANCOMYCIN HCL 1 GM/NS PREMIX 250 ML IV SCH (21:50)
[2020-10-08 00:22] VITALS: BP_SYST 101
[2020-10-08] MEDS: PIPERACILLIN/TAZO 2.25G/DEX-IS 50 ML IV SCH ×5 (00:23→23:37)
[2020-10-08] MEDS: NACL 0.9% 1,000 ML IV SCH ×2 (00:23→12:01)
[2020-10-08] MEDS: IPRATROPIUM/ALBUTEROL SULFATE 3 ML AMPUL.NEB (DUONEB) INH SCH ×4 (00:55→19:27)
[2020-10-08] MEDS: INSULIN REGULAR, HUMAN 100 UNITS/ML, 10 ML VIAL (humuLIN R) SUBCUT PRN ×2 (06:20→17:11)
[2020-10-08 07:18] LABS: BASOPHILS # (AUTO) 0.1 K/uL (0.0-0.2); BASOPHILS % (AUTO) 0.9 % (0.0-2.0); EOSINOPHILS # (AUTO) 0.2 K/uL (0.0-0.4); EOSINOPHILS % (AUTO) 1.2 % (0.0-4.0); HEMATOCRIT 25.2 % (36-54); LYMPHOCYTES # (AUTO) 1.2 K/uL (1.0-5.5); LYMPHOCYTES % (AUTO) 9.6 % (20.5-51.5); MEAN CORPUSCULAR HEMOGLOBIN 27 pg (27-31); MEAN CORPUSCULAR HGB CONC 32 % (32-36); MEAN CORPUSCULAR VOLUME 83 fL (79.0-98.0); MONOCYTES # (AUTO) 0.9 K/uL (0.0-1.0); MONOCYTES % (AUTO) 7.2 % (1.7-9.3); NEUTROPHILS # (AUTO) 10.3 K/uL (1.8-7.7); NEUTROPHILS % (AUTO) 81.1 % (40.0-70.0); PLATELET COUNT (AUTO) 266 K/uL (130-430); RED BLOOD CELL COUNT(AUTO) 3.03 MIL/uL (4.2-6.2); RED CELL DISTRIBUTION WIDTH 17.7 % (9.0-15.0); WHITE BLOOD COUNT (AUTO) 12.8 K/uL (4.8-10.8)
[2020-10-08 07:28] LABS: ALANINE AMINOTRANSFERASE 25 U/L (12-78); ALBUMIN 1.5 g/dL (3.4-4.8); ANION GAP 8 (5-15); ASPARTATE AMINOTRANSFERASE 31 U/L (10-37); CALCIUM 8.3 mg/dL (8.4-11.0); CHLORIDE 110 mmol/L (98-107); CREATININE 1.35 mg/dL (0.55-1.30); GLUCOSE 162 mg/dL (70-99); SODIUM SERUM 143 mmol/L (136-145); TOTAL BILIRUBIN 0.8 mg/dL (0.0-1.0); UREA NITROGEN, BLOOD 43 mg/dL (8-21)
[2020-10-08 07:30] VITALS: BP_SYST 113
[2020-10-08 07:35] VITALS: BP_SYST 113
[2020-10-08] MEDS: DILTIAZEM HCL 30 MG TABLET GT SCH ×3 (09:00→20:42)
[2020-10-08] MEDS: FUROSEMIDE 40 MG TABLET GT SCH (09:00)
[2020-10-08] MEDS: FAMOTIDINE 20 MG TABLET GT SCH (09:03)
[2020-10-08] MEDS: LACTOBACILLUS RHAMNOSUS GG 1 CAP CAPSULE PO SCH (09:03)
[2020-10-08] MEDS: MULTIVITAMINS TAB 1 TABLET GT SCH ×2 (09:03→20:45)
[2020-10-08] MEDS: PANTOPRAZOLE SODIUM 40 MG/VIAL (PROTONIX) IVP SCH ×2 (09:03→20:46)
[2020-10-08] MEDS: ASCORBIC ACID 500 MG TABLET GT SCH ×2 (09:03→20:46)
[2020-10-08] MEDS: TAMSULOSIN HCL 0.4 MG CAP GT SCH ×2 (09:03→20:45)
[2020-10-08] MEDS: FERROUS SULFATE 300 MG/5 ML UDC GT SCH (09:04)
[2020-10-08] MEDS: CHLORHEXIDINE GLUCONATE 15 ML/DOSE, 480 ML MM SCH ×2 (09:06→20:40)
[2020-10-08] MEDS ORDERED: levoFLOXacin 500 MG TABLET PO ONE (10:45)
[2020-10-08 11:53] VITALS: BP_SYST 101
[2020-10-08 12:26] LABS: INR 1.2 (0.80-1.20); PROTHROMBIN TIME 11.8 SECS (9.5-12.5)
[2020-10-08 16:11] VITALS: BP_SYST 113
[2020-10-08 20:35] VITALS: BP_SYST 107
[2020-10-09] VITALS (9 sets, daily range): BP systolic 100–134
[2020-10-09] MEDS: IPRATROPIUM/ALBUTEROL SULFATE 3 ML AMPUL.NEB (DUONEB) INH SCH ×4 (00:47→20:19)
[2020-10-09] MEDS: PIPERACILLIN/TAZO 2.25G/DEX-IS 50 ML IV SCH ×3 (05:55→17:39)
[2020-10-09] MEDS: FERROUS SULFATE 300 MG/5 ML UDC GT SCH (08:15)
[2020-10-09] MEDS: ASCORBIC ACID 500 MG TABLET GT SCH ×2 (08:16→20:49)
[2020-10-09] MEDS: FAMOTIDINE 20 MG TABLET GT SCH (08:16)
[2020-10-09] MEDS: PANTOPRAZOLE SODIUM 40 MG/VIAL (PROTONIX) IVP SCH ×2 (08:16→20:49)
[2020-10-09] MEDS: TAMSULOSIN HCL 0.4 MG CAP GT SCH ×2 (08:16→20:48)
[2020-10-09] MEDS: CHLORHEXIDINE GLUCONATE 15 ML/DOSE, 480 ML MM SCH ×2 (08:17→20:55)
[2020-10-09] MEDS: LACTOBACILLUS RHAMNOSUS GG 1 CAP CAPSULE PO SCH (08:17)
[2020-10-09] MEDS: MULTIVITAMINS TAB 1 TABLET GT SCH ×2 (08:17→20:49)
[2020-10-09] MEDS: DILTIAZEM HCL 30 MG TABLET GT SCH ×3 (08:24→20:48)
[2020-10-09] MEDS: FUROSEMIDE 40 MG TABLET GT SCH (08:24)
[2020-10-09] MEDS: NACL 0.9% 1,000 ML IV SCH (08:46)
[2020-10-09] MEDS ORDERED: levoFLOXacin 500 MG TABLET PO SCH (10:00)
[2020-10-09] MEDS: INSULIN REGULAR, HUMAN 100 UNITS/ML, 10 ML VIAL (humuLIN R) SUBCUT PRN ×3 (11:15→21:02)
[2020-10-09] MEDS ORDERED: BALSAM PERU/CASTOR OIL 60 GM OINT...G. TP SCH (14:15)
[2020-10-09] MEDS ORDERED: MENTHOL/ZINC OXIDE 113 GM OINT. TP PRN (14:15)
[2020-10-09] MEDS: EPOETIN ALFA 4,000 UNITS/ML VIAL SUBCUT SCH (14:58)
== END 2020-10-09 22:40 | DRG 720 ==
LOC: SED 22:31 → STU 10-02 00:40
PROVIDERS: ADMIT Internal Medicine; ATTEND Internal Medicine
PROC: 5A1955Z Respiratory Ventilation, Greater than 96 Consecutive Hours (ICD-10-PCS; principal; 2020-10-02)
PROC: 0HD9XZZ Extraction of Perineum Skin, External Approach (ICD-10-PCS; 2020-10-07)
PROC: 02HV33Z Insertion of Infusion Device into Superior Vena Cava, Percutaneous Approach (ICD-10-PCS; 2020-10-09)
DX: A41.9 Sepsis, unspecified organism (principal); N17.0 Acute kidney failure with tubular necrosis; J95.851 Ventilator associated pneumonia; E87.1 Hypo-osmolality and hyponatremia; N45.3 Epididymo-orchitis; Z93.0 Tracheostomy status; N39.0 Urinary tract infection, site not specified; I21.A1 Myocardial infarction type 2; J96.10 Chronic respiratory failure, unspecified whether with hypoxia or hypercapnia; E11.22 Type 2 diabetes mellitus with diabetic chronic kidney disease; N18.9 Chronic kidney disease, unspecified; G93.40 Encephalopathy, unspecified; E11.52 Type 2 diabetes mellitus with diabetic peripheral angiopathy with gangrene; I08.1 Rheumatic disorders of both mitral and tricuspid valves; I11.0 Hypertensive heart disease with heart failure; J44.9 Chronic obstructive pulmonary disease, unspecified; K21.9 Gastro-esophageal reflux disease without esophagitis; E21.3 Hyperparathyroidism, unspecified; I48.20 Chronic atrial fibrillation, unspecified; N20.0 Calculus of kidney; I13.0 Hypertensive heart and chronic kidney disease with heart failure and stage 1 through stage 4 chronic kidney disease, or unspecified chronic kidney disease; I69.351 Hemiplegia and hemiparesis following cerebral infarction affecting right dominant side; I48.0 Paroxysmal atrial fibrillation; E78.5 Hyperlipidemia, unspecified; F03.90 Unspecified dementia, unspecified severity, without behavioral disturbance, psychotic disturbance, mood disturbance, and anxiety; E66.9 Obesity, unspecified; Z20.822 Contact with and (suspected) exposure to COVID-19; I50.9 Heart failure, unspecified; J15.9 Unspecified bacterial pneumonia; I25.10 Atherosclerotic heart disease of native coronary artery without angina pectoris; N43.3 Hydrocele, unspecified; I86.1 Scrotal varices; R40.20 Unspecified coma; L02.215 Cutaneous abscess of perineum; D68.59 Other primary thrombophilia; Y95 Nosocomial condition; Z74.01 Bed confinement status; Z87.891 Personal history of nicotine dependence; Z93.1 Gastrostomy status; Z99.11 Dependence on respirator [ventilator] status; Z79.01 Long term (current) use of anticoagulants; Z79.82 Long term (current) use of aspirin; Z79.899 Other long term (current) drug therapy; Z79.4 Long term (current) use of insulin; Z68.34 Body mass index [BMI] 34.0-34.9, adult; Q54.9 Hypospadias, unspecified
CPT/HCPCS: 36415; 71045; 74018; 76376; 76870-TC; 80048; 80053; 80202-TC; 81000-TC; 82272; 82607; 82962; 83540-TC; 83550-TC; 83605; 83880; 84484; 85007; 85025; 85027; 85610-TC; 85730-TC; 86886; 86900; 86901; 87040-TC; 87070; 87070-TC; 87075-TC; 87081; 87205-TC; 93005; 93306; 94003; 94640; 94760; 96365; 96366; 96367; 99291; C9113; G0378; J0696; J0885; J1650; J1815; J1956; J2543; J2916; J3370